=== PATIENT | male | born 1990 | race Caucasian/White ===

== ENCOUNTER → 2017-04-14 | Outpatient (CLI) | payer BC, OTHER ==
--- NOTE | 2017-04-15 08:33 | CONS ---
DATE OF CONSULTATION: 27-year-old male patient who has been having insomnia for quite some time. The patient has been taking care of by his primary care physician Dr. Josué Hager. He has had sleep issues at a very young age. The patient lost his father at age of 15 and his mother was gone most of the time and this made this patient have a very irregular sleep-wake cycle without getting a regular sleep scheduled as a teenager. As such, the patient continued to have very poor sleep hygiene. 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 At the age of 21, the patient started drinking alcohol to help himself going to sleep and he drank for several years and he stopped drinking approximately 3 years ago. At this point he is trying to regulate his sleep-wake cycle knowing that he got promoted at a new job at [employer] and he wants to have a better sleep-wake cycle knowing that he has to be at work at a regular time. He had been having difficulties in sleep initiation and maintenance. He reported electricity going from the brain down through his body and it is while going to sleep and he would feel shaky and panicky having shallow breathing. These symptoms have been going on for the past several years, and for that reason, he consulted with his primary care physician who in turn worked with psychiatrist Dr. Adam and a counselor to improve his anxiety and trying to treat the insomnia. The patient has already been treated with a combination of different medications including Melatonin which failed to improve his symptoms, Trazadone which helped him fall asleep; however, this caused significant amount of grogginess and tiredness during the day, Temazepam, which had no significant intact on his sleep structure. More recently the patient was started on 0.5 mg of Xanax and this had a positive effect on his sleep where the patient is able to initiate sleep within 10 to 20 minutes and he would wake up only once or twice in the middle of the night. Note that the patient works 5 days a week and he does not work on Sundays and he has a single day off during . He goes to bed around 8:30 p.m., wakes up at 6:00 a.m. in the morning and sleep is being promoted by intake of Xanax. He has followed very strict sleep hygiene measures. He does not drink at alcohol. Does not drink any caffeinated beverages. His bedroom environment is very comfortable and sleep promoting. He has blindness. No bright lights. No TV. No radio. No ( ) activity or computer activity in the bedroom environment. At the same time, the patient denies having any late dinners, late showers, late exercise. He denies having any nighttime chest pain or heartburn or shortness of breath. Denies having any snoring. Denies having any nocturia. No restlessness in the lower extremities. No leg kicks. No nightmares. No sleepwalking or sleeptalking. No hallucinations or cataplexy. He is waking more alert and refreshed by the intake of Xanax and he has found himself a rhythm where is able to go to sleep and wake up on a regular basis with some occasional difficulties with arousals in the middle of the night. Nevertheless, these arousals have been very short lasting and the patient will be able to go back to sleep without any difficulties. PAST MEDICAL HISTORY: Insomnia as above, hypertension. PAST SURGICAL HISTORY: Negative. DRUG ALLERGIES ARE TO PENICILLIN AND AUGMENTIN. Outpatient medication includes: 1. Atenolol. 2. Xanax 0.5 mg for sleep. SOCIAL HISTORY: The patient is a nonsmoker. No history of alcohol. No history of IV drugs. FAMILY HISTORY: Negative for sleep breathing disorder. REVIEW OF SYSTEMS: Twelve-point review of systems was done and the positive findings were all mentioned above in the history of present illness. BP is 132/72, respirations 16, temperature 98.1, saturation 98% on room air. Weight is 196, height is 5 feet 11 inches. Neck size 15-1/2 inches. GENERAL APPEARANCE: Calm, comfortable. HEENT: Short neck, crowding of the posterior pharynx. NECK: Negative for JVD. No goiter or neck mass. LUNGS: Clear to auscultation. HEART: Sounds are regular rate and rhythm. Normal S1, S2. ABDOMEN: Soft, nontender. No organomegaly. EXTREMITIES: No edema. No cyanosis, or clubbing. IMPRESSION: Chronic insomnia. The two potential triggers for insomnia, were: A) Poor sleep hygiene and B) Chronic anxiety. The patient has already done significant lifestyle changes to improve his sleep quality. He is following a very strict sleep hygiene protocol and I am very happy to hear that he has been following the sleep hygiene measures and I was unable to identify any activity that could potentially adversely affect his sleep. I asked him to continue the same sleep hygiene measures. The patient has already seen a psychiatrist and a counselor. He is currently utilizing Xanax 0.5 mg which is optimizing his anxiety and promoting sleep. He is able to sleep a good 7 to 8 hours and he is waking up alert and awake and is not is having any difficulties in day-to-day functioning. Based on this, I do not see any need for medication adjustments. The patient has tried different hypnotics, and antidepressants in the past without any major impact. I would suggest considering the Xanax at the same dose with a possibility of weaning down dose to 0.25 mg and stopping it at a later stage. Relaxation techniques and counseling has already been done on this patient. His overall prognosis good. He is able to sleep a good 7 hours in a 24-hour period and his symptoms are actually improving. As such, no need for any further investigation or adjustments in medication. Refill Xanax through his primary care physician. See me as needed.
== END ==
LOC: EDBD 16:10 → SLEEP 16:25
PROVIDERS: ATTEND Internal Medicine Critical Care Medicine
DX: G47.00 Insomnia, unspecified (principal); F41.9 Anxiety disorder, unspecified; Z72.821 Inadequate sleep hygiene; Z79.899 Other long term (current) drug therapy; Z88.0 Allergy status to penicillin
CPT/HCPCS: 99211